=== PATIENT | male | born 1970 | race Caucasian/White ===

== ENCOUNTER 2020-01-26 13:46 | Inpatient (IN) | payer MEDICAID ==
[~2020-01-26] VITALS: Ht 182.9 cm; Wt 127.6 kg
[2020-01-26] MEDS ORDERED: FENTANYL PF 100 MCG/2ML ONE ×2 (13:52→14:29)
[2020-01-26] MEDS ORDERED: MIDAZOLAM 1 MG/ML, 5ML ONE ×2 (13:52→14:29)
[2020-01-26] MEDS ORDERED: LORazepam 2 MG/ML, 1ML ONE (13:52)
[2020-01-26] MEDS ORDERED: LIDOCAINE 2%, 20ML ONE (13:53)
[2020-01-26] MEDS ORDERED: BIVALIRUDIN 250 MG ONE ×2 (13:53→14:10)
[2020-01-26] MEDS ORDERED: VERAPAMIL 2.5 MG/ML, 2ML ONE (13:53)
[2020-01-26] MEDS ORDERED: CLOPIDOGREL 300 MG TABLET ONE (13:54)
[2020-01-26] MEDS ORDERED: AMIODARONE 450 MG in DEXTROSE 5% 241 ML IV PRN ×2 (14:00→15:00)
[2020-01-26] MEDS ORDERED: LORazepam 2 MG/ML, 1ML IVPush ONE (14:00)
--- NOTE | 2020-01-26 14:14 | NUR ---
THIS TECH ASSISTED W/ TRANSPORT FROM [facility] & TO [employer]VE[employer] SUPERVISOR THIS TECH DID EKG @ [id number]
[2020-01-26 14:20] LABS: TROPONIN I 0.398 ng/mL (0.000-0.045)
[2020-01-26] MEDS ORDERED: DIPHENHYDRAMINE 50 MG/ML, 1ML ONE (14:29)
[2020-01-26] MEDS ORDERED: PLEASE ENTER ALLERGIES MC SCH (14:30)
[2020-01-26] MEDS ORDERED: PLEASE ENTER HEIGHT AND WEIGHT MC SCH (14:30)
[2020-01-26] MEDS ORDERED: BIVALIRUDIN 250 MG in SODIUM CHLORIDE 0.9% 50 ML IV SCH (14:54)
[2020-01-26] MEDS ORDERED: ZOLPIDEM 5MG TABLET PO PRN (15:00)
[2020-01-26] MEDS ORDERED: ONDANSETRON 2MG/ML, 2ML IVPush PRN ×2 (15:00→16:00)
[2020-01-26] MEDS ORDERED: ACETAMINOPHEN 325 MG TABLET PO PRN ×2 (15:00→16:00)
[2020-01-26] MEDS ORDERED: FUROSEMIDE 20 MG/2 ML ONE (15:22)
[2020-01-26] MEDS ORDERED: POTASSIUM CHLORIDE 20 MEQ TAB.ER.PRT PO ONE (15:30)
[2020-01-26] MEDS ORDERED: FILTER 0.22 MICRON IV PRN (15:30)
[2020-01-26] MEDS ORDERED: FUROSEMIDE 40 MG/4 ML IV ONE (15:30)
[2020-01-26] MEDS ORDERED: MORPHINE SULFATE 4 MG/ML, 1ML IVPush PRN (15:30)
[2020-01-26] MEDS: FUROSEMIDE 40 MG TABLET PO SCH (15:38)
[2020-01-26] MEDS ORDERED: SODIUM CHLORIDE 0.9% 1,000 ML IV SCH (15:50)
[2020-01-26] MEDS ORDERED: LABETALOL 5MG/ML, 20ML IVPush PRN (16:00)
[2020-01-26] MEDS ORDERED: POLYETHYLENE GLYCOL 17 GM PACKET PO PRN (16:00)
[2020-01-26] MEDS ORDERED: BISACODYL 10 MG SUPP PR PRN (16:00)
[2020-01-26] MEDS ORDERED: ENALAPRILAT 1.25 MG/ML, 2ML IVPush PRN (16:00)
[2020-01-26] MEDS: ENOXAPARIN 40 MG/0.4 ML SQ SCH (16:00)
[2020-01-26] MEDS: INSULIN LISPRO 100 UNITS/ML, PEN SQ-INSULIN SCH ×2 (16:50→21:16)
[2020-01-26] MEDS: METOPROLOL TARTRATE 25 MG TAB PO SCH (17:09)
[2020-01-26] MEDS: FILTER 0.22 MICRON IV PRN (17:46)
[2020-01-26 20:39] LABS: BASOPHILS # (AUTO) 0.05 x10^3/uL (0-0.1); BASOPHILS % (AUTO) 0 % (0-1); EOSINOPHILS # (AUTO) 0.18 x10^3/uL (0-0.4); EOSINOPHILS % (AUTO) 1 % (1-7); LYMPHOCYTES # (AUTO) 2.42 x10^3/uL (1-3.4); LYMPHOCYTES % (AUTO) 19 % (22-44); MD NO; MEAN CORPUSCULAR HEMOGLOBIN 29.3 pg (27.5-34.5); MEAN CORPUSCULAR HGB CONC 33.1 g/dL (33.2-36.2); MEAN CORPUSCULAR VOLUME 88.4 fL (81-97); MEAN PLATELET VOLUME 8.8 fL (7.4-10.4); MONOCYTES # (AUTO) 0.53 x10^3/uL (0.2-0.8); MONOCYTES % (AUTO) 4 % (2-9); NEUTROPHILS # (AUTO) 9.56 x10^3/uL (1.8-6.8); NEUTROPHILS % (AUTO) 75 % (42-75); PLATELET COUNT 309 x10^3/uL (130-400); RED BLOOD COUNT 5.31 x10^6/uL (4.38-5.82)
[2020-01-26] MEDS: ATORVASTATIN 40 MG TABLET PO SCH (20:51)
[2020-01-27] MEDS: FILTER 0.22 MICRON IV PRN (00:30)
[2020-01-27 03:23] LABS: BASOPHILS # (AUTO) 0.11 x10^3/uL (0-0.1); BASOPHILS % (AUTO) 1 % (0-1); EOSINOPHILS # (AUTO) 0.13 x10^3/uL (0-0.4); EOSINOPHILS % (AUTO) 1 % (1-7); LYMPHOCYTES % (AUTO) 21 % (22-44); MD NO; MEAN CORPUSCULAR HEMOGLOBIN 29.8 pg (27.5-34.5); MEAN CORPUSCULAR HGB CONC 33.5 g/dL (33.2-36.2); MEAN CORPUSCULAR VOLUME 88.9 fL (81-97); MEAN PLATELET VOLUME 8.9 fL (7.4-10.4); MONOCYTES # (AUTO) 0.72 x10^3/uL (0.2-0.8); MONOCYTES % (AUTO) 5 % (2-9); NEUTROPHILS # (AUTO) 10.31 x10^3/uL (1.8-6.8); NEUTROPHILS % (AUTO) 73 % (42-75); PLATELET COUNT 302 x10^3/uL (130-400); RED BLOOD COUNT 4.85 x10^6/uL (4.38-5.82); RED CELL DISTRIBUTION WIDTH 14.9 % (9.4-14.8)
[2020-01-27 03:31] LABS: ANION GAP 7 mmol/L (5-15); CALCIUM 9.2 mg/dL (8.5-10.1); CHLORIDE 101 mmol/L (98-107); CREATININE 0.92 mg/dL (0.7-1.3)
[2020-01-27 03:32] LABS: ALANINE AMINOTRANSFERASE 113 U/L (12-78); ALBUMIN 3.1 g/dL (3.4-5.0)
[2020-01-27 03:50] LABS: ALKALINE PHOSPHATASE 96 U/L (45-117); BILIRUBIN,TOTAL 0.6 mg/dL (0.2-1.0); TOTAL PROTEIN 7.3 g/dL (6.4-8.2)
[2020-01-27] MEDS: INSULIN LISPRO 100 UNITS/ML, PEN SQ-INSULIN SCH ×4 (06:07→22:52)
[2020-01-27] MEDS: SENNA/DOCUSATE TABLET PO SCH (08:45)
[2020-01-27] MEDS: CLOPIDOGREL 75 MG TABLET PO SCH (08:45)
[2020-01-27] MEDS: METOPROLOL TARTRATE 25 MG TAB PO SCH ×2 (08:45→17:24)
[2020-01-27] MEDS: FUROSEMIDE 40 MG TABLET PO SCH ×2 (08:45→17:24)
[2020-01-27] MEDS: ASPIRIN 81 MG TABLET EC PO SCH (08:45)
[2020-01-27 13:05] VITALS: BP 104/74
[2020-01-27] MEDS: ENOXAPARIN 40 MG/0.4 ML SQ SCH (17:24)
[2020-01-27 21:00] VITALS: BP 121/84
[2020-01-27] MEDS: ATORVASTATIN 40 MG TABLET PO SCH (22:51)
[2020-01-28 02:05] VITALS: BP 116/86
[2020-01-28 05:53] LABS: BASOPHILS # (AUTO) 0.14 x10^3/uL (0-0.1); BASOPHILS % (AUTO) 1 % (0-1); EOSINOPHILS # (AUTO) 0.15 x10^3/uL (0-0.4); EOSINOPHILS % (AUTO) 1 % (1-7); LYMPHOCYTES # (AUTO) 3.89 x10^3/uL (1-3.4); LYMPHOCYTES % (AUTO) 29 % (22-44); MD NO; MEAN CORPUSCULAR HEMOGLOBIN 29.5 pg (27.5-34.5); MEAN CORPUSCULAR VOLUME 89.4 fL (81-97); MEAN PLATELET VOLUME 9.1 fL (7.4-10.4); MONOCYTES % (AUTO) 6 % (2-9); NEUTROPHILS # (AUTO) 8.45 x10^3/uL (1.8-6.8); NEUTROPHILS % (AUTO) 63 % (42-75); PLATELET COUNT 289 x10^3/uL (130-400); RED BLOOD COUNT 5.08 x10^6/uL (4.38-5.82); RED CELL DISTRIBUTION WIDTH 14.6 % (9.4-14.8)
[2020-01-28 06:01] LABS: ANION GAP 8 mmol/L (5-15); CALCIUM 9.4 mg/dL (8.5-10.1); CHLORIDE 102 mmol/L (98-107)
[2020-01-28 06:06] LABS: CHOLESTEROL, TOTAL 132 mg/dL (140-239); CREATININE 0.91 mg/dL (0.7-1.3); HDL CHOL % 33 % (26-37); HDL CHOLESTEROL (DIRECT) 44 mg/dL (40-60); LDL CHOLESTEROL,CALCULATED 55 mg/dL (54-169); LDL/HDL RATIO 1.3 (0.5-3.0); TRIGLYCERIDES 166 mg/dL (50-200); VLDL CHOLESTEROL 33 mg/dL (0-25)
[2020-01-28] MEDS: METOPROLOL TARTRATE 25 MG TAB PO SCH (06:23)
[2020-01-28 07:48] VITALS: BP 113/77
[2020-01-28] MEDS: INSULIN LISPRO 100 UNITS/ML, PEN SQ-INSULIN SCH ×2 (08:13→11:54)
[2020-01-28] MEDS: FUROSEMIDE 40 MG TABLET PO SCH (08:13)
[2020-01-28] MEDS: ASPIRIN 81 MG TABLET EC PO SCH (08:13)
[2020-01-28] MEDS: CLOPIDOGREL 75 MG TABLET PO SCH (08:13)
[2020-01-28] MEDS: SENNA/DOCUSATE TABLET PO SCH (08:15)
[2020-01-28] MEDS ORDERED: ENAL1.2513 PO (12:14)
[2020-01-28] MEDS ORDERED: FURO40TA6 PO (12:14)
[2020-01-28] MEDS ORDERED: ASPI81TA45 PO (12:14)
[2020-01-28] MEDS ORDERED: METO25TA35 PO (12:14)
[2020-01-28] MEDS ORDERED: METF500T PO (12:14)
[2020-01-28] MEDS ORDERED: ATOR40TA78 PO (12:14)
[2020-01-28] MEDS ORDERED: CLOP75TA PO (12:14)
== END 2020-01-28 16:26 | disposition home or self-care (01) | DRG 174 ==
LOC: ED 14:09 → EDIP 14:12 → CCU 14:52 → 5SO 01-27 13:02
PROVIDERS: ADMIT Hospitalist; ATTEND Internal Medicine
PROC: 4A023N7 Measurement of Cardiac Sampling and Pressure, Left Heart, Percutaneous Approach (ICD-10-PCS; principal; 2020-01-26)
PROC: 02703DZ Dilation of Coronary Artery, One Artery with Intraluminal Device, Percutaneous Approach (ICD-10-PCS; 2020-01-26)
PROC: B211YZZ Fluoroscopy of Multiple Coronary Arteries using Other Contrast (ICD-10-PCS; 2020-01-26)
PROC: B215YZZ Fluoroscopy of Left Heart using Other Contrast (ICD-10-PCS; 2020-01-26)
DX: I21.19 ST elevation (STEMI) myocardial infarction involving other coronary artery of inferior wall (principal); I46.9 Cardiac arrest, cause unspecified; E11.65 Type 2 diabetes mellitus with hyperglycemia; E66.9 Obesity, unspecified; F12.90 Cannabis use, unspecified, uncomplicated; F15.10 Other stimulant abuse, uncomplicated; Z91.14 Patient's other noncompliance with medication regimen; I10 Essential (primary) hypertension; I87.8 Other specified disorders of veins; Z68.38 Body mass index [BMI] 38.0-38.9, adult; E78.5 Hyperlipidemia, unspecified; F11.10 Opioid abuse, uncomplicated; G89.29 Other chronic pain; I25.10 Atherosclerotic heart disease of native coronary artery without angina pectoris; I49.01 Ventricular fibrillation; R60.0 Localized edema; S89.92XA Unspecified injury of left lower leg, initial encounter; M54.9 Dorsalgia, unspecified; Z82.49 Family history of ischemic heart disease and other diseases of the circulatory system; Z86.711 Personal history of pulmonary embolism; Z86.718 Personal history of other venous thrombosis and embolism; Z88.0 Allergy status to penicillin; V86.56XA Driver of dirt bike or motor/cross bike injured in nontraffic accident, initial encounter; Z87.891 Personal history of nicotine dependence; V29.9XXA Motorcycle rider (driver) (passenger) injured in unspecified traffic accident, initial encounter
CPT/HCPCS: 36415; 80047; 80048; 80053; 80061; 82962; 83036; 84443; 84484; 85025; 87081; 92920; 93005; 93306; 93458; 96374; 99156; 99157; C1760; C1769; C1876; C1894; G0378; J0583; J1650; J1940; J2250; J3010; J7060; C1725; C1887; J0282; J1200; J1815; J2060; Q9967